=== PATIENT | female | born 1950 | race Caucasian/White ===

== ENCOUNTER 2017-09-27 10:47 | Emergency (ER) | payer BC, OTHER ==
--- NOTE | 2017-09-27 10:57 | PDOC ---
History of Present Illness - General Chief Complaint: Pain Stated Complaint: RIGHT SHOULDER PAIN RADIATED DOWN RIGHT ARM FOR 5 Time Seen by Provider: 09/27/17 10:52 History Source: Patient Exam Limitations: No Limitations - History of Present Illness Initial Comments: 09/27/17 10:52 67 y/o female with right arm pain. Patient states she was doing a lot of lifting this week and pain started in right shoulder and was unable to lift shoulder. After taking Tylenol, pain went away. Now pain in right hand/wrist. Hard to completely business center representative things without being in pain. Pain worse last two days. No numbness or weakness. No chest pain or SOB or back pain. Denies fall or trauma. No fever or chills. No recent procedure. Denies swelling as well. Does a lot of typing as well. Severity: mild Associated Symptoms: reports: denies symptoms Past History - Past Medical History Allergies/Adverse Reactions: Allergies Allergy/AdvReac Type Severity Reaction Status Date / Time latex Allergy Severe Swelling Verified 09/27/17 10:53 Sulfa (Sulfonamide Allergy Intermediate Nausea Verified 09/27/17 10:48 Antibiotics) Home Medications: Ambulatory Orders Atorvastatin Ca [Lipitor] 20 mg PO HS 12/13/13 Levothyroxine [Synthroid -] 150 mcg PO DAILY 12/13/13 Cyclobenzaprine HCl 10 mg PO TID PRN #10 tablet 09/27/17 Multivit-Min/FA/Lycopen/Lutein [Centrum Silver Tablet] 1 tab PO DAILY 09/27/17 Telmisartan/Hydrochlorothiazid [Telmisartan-Hctz 80-25 mg Tab] 1 tab PO DAILY HTN: Yes Hypercholesterolemia: Yes Thyroid Disease: Yes - Suicide/Smoking/Psychosocial Hx Smoking History: Former smoker Have you smoked in the past 12 months: No If you are a former smoker, when did you quit?: 35 YRS Hx Alcohol Use: No Substance Use Type: None Review of Systems - Review of Systems Able to Perform ROS?: Yes Is the patient limited Cymro proficient: No Constitutional: No: Chills, Fever, Night Sweats Respiratory: No: Cough, Shortness of Breath Cardiac (ROS): No: Chest Pain, Palpitations ABD/GI: No: Nausea, Vomiting Musculoskeletal: No: Joint Pain, Muscle Pain All Other Systems: Reviewed and Negative *Physical Exam - Physical Exam General Appearance: Yes: Nourished, Appropriately Dressed. No: Apparent Distress HEENT: positive: EOMI, DANAE, Normal ENT Inspection, Pharynx Normal Neck: positive: Trachea midline, Normal Thyroid, Supple, Other (no spinous process tenderness, full ROM). negative: Tender, Rigid Respiratory/Chest: positive: Lungs Clear, Normal Breath Sounds. negative: Chest Tender, Respiratory Distress Cardiovascular: positive: Regular Rhythm, Regular Rate, S1, S2, Other (no calf tenderness b/l). negative: Edema, JVD, Murmur Vascular Pulses: Femoral (R): 4+, Femoral (L): 4+, Carotid (R): 4+, Carotid (L) : 4+, Dorsalis-Pedis (R): 4+, Doralis-Pedis (L): 4+ Gastrointestinal/Abdominal: positive: Normal Bowel Sounds, Flat, Soft. negative : Tender, Organomegaly, Pulsatile Mass Musculoskeletal: positive: Normal Inspection. negative: CVA Tenderness Extremity: positive: Normal Capillary Refill, Normal Inspection, Normal Range of Motion, Tender (tender to palpation at wrist, median nerve, +Tinnels sign, Positive Finklestein test). negative: Calf Tenderness Integumentary: positive: Normal Color, Dry, Warm. negative: Erythema, Cold, Swelling Neurologic: positive: sex crimes detective II-XII NML intact, Fully Oriented, Alert, Normal Mood/ Affect, Normal Response (strength 5+/5 b/l in UE and LE, no focal deficits, full ROM of right shoulder, decrease right business center representative seconday to pain as per patient) , Motor Strength 5/5 ED Treatment Course - ADDITIONAL ORDERS Additional order review: 09/27/17 10:57 Patient appears to have a radiculopathy, median nerve entrapment Vitals stable, no temperature Will place on Motrin and Flexeril; Will need splint and Ortho referral, with possible MRI If worsen return to ER Patient is in agreement with plan *DC/Admit/Observation/Transfer Diagnosis at time of Disposition: Radiculopathy affecting upper extremity - Discharge Dispostion Disposition: HOME Condition at time of disposition: Stable Admit: No - Referrals Referrals: Laron Perry MD [Staff Physician] - Rohit Puckett MD [Staff Physician] - - Patient Instructions Printed Discharge Instructions: DI for Cervical Radiculopathy Additional Instructions: Ice, Motrin, rest Flexeril 10 mg 3x/day as needed Follow up with Orthopedics May need MRI as out patient If worsen return to ER - Post Discharge Activity
[2017-09-27 11:01] VITALS: BP 129/77; PULSE 67; TEMP 98.7; BMI 38.0
== END 2017-09-27 11:23 | disposition home or self-care (01) ==
LOC: FER 10:47
DX: M54.10 Radiculopathy, site unspecified (principal); I10 Essential (primary) hypertension; E03.9 Hypothyroidism, unspecified; E78.00 Pure hypercholesterolemia, unspecified; Z87.891 Personal history of nicotine dependence
CPT/HCPCS: 99282-25